=== PATIENT | female | born 1990 | race Caucasian/White ===

== ENCOUNTER 2019-01-22 16:01 | Emergency (ER) | payer OTHER ==
[2019-01-22 16:09] VITALS: BP 123/69
[2019-01-22] MEDS ORDERED: ACETAMINOPHEN 325 MG TABLET PO ONE (16:31)
[2019-01-22] MEDS ORDERED: IBUPROFEN 600 MG TABLET PO ONE (16:31)
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
== END 2019-01-22 16:40 | disposition home or self-care (01) ==
LOC: ER 16:01
DX: M54.6 Pain in thoracic spine (principal); M54.5 Low back pain; V89.2XXA Person injured in unspecified motor-vehicle accident, traffic, initial encounter
CPT/HCPCS: 99283